=== PATIENT | male | born 1945 | race Caucasian/White ===

== ENCOUNTER 2019-12-24 13:25 | Outpatient (CLI) | payer MEDICARE, SELFPAY ==
--- NOTE | 2019-12-24 13:32 | USCV_ITS ---
Valeriano Peterson Age: 74 Gender: M : 1945 Exam Date: 12/24/2019 14:09 Ordering Phys: Darryl Johnson MD Technologist: Angel Mckay Exam Location: [facility] [place] Indication: KNEE PAIN RIGHT LEFT Brachial 122.00 mmHg Brachial 124.00 mmHg Pressure (mmHg) Waveform Pressure (mmHg) Waveform 164.00 MAINTENANCE TECH 165.00 168.00 DPA 167.00 1.35 Ankle/Brachial Index 1.35 126.00 Pre-Exercise Toe Pressure 166.00 1.02 Pre-Exercise Toe/Brachial Index 1.34 FINDINGS Normal resting ABIs bilaterally Normal resting TBIs bilaterally CONCLUSIONS No evidence of any significant arterial obstruction, based on the above findings. Dr Ramiro Restrepo MD FACC (Electronically Signed) Final Date: 24 December 2019 18:38 S
== END 2019-12-24 13:26 | disposition home or self-care (01) ==
LOC: RAD 13:30
PROVIDERS: PCP Family Medicine; Visit Provider Family Medicine
DX: M25.562 Pain in left knee (principal); G89.29 Other chronic pain
CPT/HCPCS: 93922

== ENCOUNTER 2021-07-11 13:10 | Outpatient (CLI) | payer MEDICARE, SELFPAY ==
--- NOTE | 2021-07-11 13:23 | USCV_ITS ---
Valeriano Peterson Age: 76 Gender: M : 1945 Exam Date: 07/11/2021 13:37 Ordering Phys: Darryl Johnson MD Technologist: LAURA Exam Location: [facility] – [place] Indication: PVCS BP: 128 / 75 HR: 64 Rhythm: Sinus Technical Quality: Adequate MEASUREMENTS (Male / Female) Normal Values 2D ECHO RV Chamber Size 2.6 cm LVOT Diameter 2.0 cm LV Ejection Fraction MOD 2C 60.6 % LV Ejection Fraction 2C AL 62.5 % LA Diameter 4.3 cm LA Width 4.2 cm LA Height 4.8 cm RA Width 2.3 cm RA Height 5.3 cm Aorta at Sinotubular Diameter 2.5 cm M-MODE Aortic Annulus Diameter 3.7 cm LA Ao Ratio MM 1.2 DOPPLER AV Peak Velocity 109.0 cm/s LVOT Peak Velocity 80.0 cm/s AV Area Cont Eq vti 2.3 cm squared AV Area Cont Eq pk 2.4 cm squared MV Area PHT 3.1 cm squared Mitral E to A Ratio 1.1 MV E' Velocity 41.4 cm/s Mitral E to MV E' Ratio 7.5 Mitral E to LV E' Lateral Ratio 6.8 Mitral E to LV E' Septal Ratio 8.4 TR Peak Velocity 238.0 cm/s TR Peak Gradient 22.7 mmHg TV Peak E Velocity 67.0 cm/s PV Peak Velocity 101.0 cm/s RV Acceleration Time 0.1 s RV Ejection Time 0.3 s RV AcT/ET 0.3 FINDINGS Left Ventricle Normal left ventricular size. LV systolic function is normal with EF of 55-60%. No regional wall motion abnormalities. Normal diastolic filling pattern. Right Ventricle The right ventricle is normal in size and function. Right Atrium The right atrium is normal in size. Left Atrium The left atrium is normal in size. Mitral Valve Structurally normal mitral valve without significant stenosis or prolapse. There is trace mitral regurgitation. Aortic Valve Structurally normal aortic valve without significant sclerosis or stenosis. There is mild to moderate aortic regurgitation. Tricuspid Valve Structurally normal tricuspid valve without significant stenosis. Trace tricuspid regurgitation. Insuffficient TR jet to calculate RVSP Pulmonic Valve Structurally normal pulmonic valve without significant stenosis. There is trace pulmonic regurgitation. Pericardium Normal pericardium without effusion. Aorta Normal ascending aorta dimension. CONCLUSIONS LV systolic function is normal with EF of 55-60% Normal diastolic dysfunction Trace mitral regurgitation Mild to moderate aortic regurgitation Trace tricuspid regurgitation. Trace pulmonic regurgitation No comparison studies are available Roddy Robins MD (Electronically Signed) Final Date: 12 July 2021 10:35 S
== END 2021-07-11 13:11 | disposition home or self-care (01) ==
LOC: RAD 13:16
PROVIDERS: PCP Family Medicine; Visit Provider Family Medicine
DX: R42 Dizziness and giddiness (principal); I49.3 Ventricular premature depolarization; I10 Essential (primary) hypertension; I08.0 Rheumatic disorders of both mitral and aortic valves
CPT/HCPCS: 93306

== ENCOUNTER → 2023-04-02 11:02 | Outpatient (BNVA) | payer MEDICARE, SELFPAY | PROVIDERS: PCP Family Medicine; Visit Provider Family Medicine | DX: R53.83 Other fatigue (principal); I10 Essential (primary) hypertension; G62.9 Polyneuropathy, unspecified; R00.0 Tachycardia, unspecified | CPT/HCPCS: 80053; 80061; 82306; 82607; 83880; 84443; 85025; 86140 ==

== ENCOUNTER 2023-06-27 14:25 | Outpatient (CLI) | payer MEDICARE, SELFPAY ==
--- NOTE | 2023-06-27 14:45 | US_ITS ---
WS: [id number] Exam: US soft tissue/extremity [id number] Date/Time of Exam: 06/27/2023 2:41 PM Reason For Exam: right lower leg mass The RIGHT lower leg is targeted for ultrasound evaluation. A small complex hypoechoic subcutaneous fluid collection is noted at the area of the palpable abnorma lity. This measures 1.22 cm in greatest length and about 0.54 cm in greatest thickness. A small secon d adjacent fluid collection is noted. This may represent a hematoma or seroma. A small abscess could also have this appearance. No solid soft tissue mass is seen. IMPRESSION: 1. Small bilobed subcutaneous complex fluid collection as noted above. This may represent a hematoma or seroma. A small abscess might also have this appearance. 2. No solid soft tissue masses were noted.
== END 2023-06-27 14:26 | disposition home or self-care (01) ==
LOC: RAD 14:29
PROVIDERS: PCP Family Medicine; Visit Provider Family Medicine
DX: R22.41 Localized swelling, mass and lump, right lower limb (principal)
CPT/HCPCS: 76882

== ENCOUNTER → 2024-12-15 11:39 | Outpatient (BNVA) | payer MEDICARE, SELFPAY | PROVIDERS: PCP Family Medicine; Visit Provider Family Medicine | DX: I10 Essential (primary) hypertension (principal); Z12.5 Encounter for screening for malignant neoplasm of prostate | CPT/HCPCS: 80053; 80061; 85025; G0103 ==